=== PATIENT | female | born 1995 | race Caucasian/White ===

== ENCOUNTER 2018-06-14 18:20 | Emergency (ER) | payer OTHER ==
[~2018-06-14] VITALS: Ht 160 cm; Wt 54.0 kg
--- NOTE | 2018-06-14 18:29 | NUR ---
Pt provided verbal consent for SART exam. [facility] pt advocate Candace present. FOX Cooper provided brief background including initially taking pt to [facility] where he was redirected here.
[2018-06-14 18:36] VITALS: BP 122/68
--- NOTE | 2018-06-14 18:50 | NUR ---
Pt transferred from T2 to ED28 with belongings accompanied by Pt advocate Candace following medical assessment by Dr Hernandez and overview of exam process.
[2018-06-14 19:02] LABS: URINE HCG NEGATIVE (NEG)
--- NOTE | 2018-06-14 19:02 | NUR ---
SART exam started following written consent and medical records release signed for [facility].
[2018-06-14 19:04] LABS: CLARITY,URINE SLIGHTLY CLOUDY (Clear); COLOR,URINE YELLOW (Yellow); GLUCOSE, URINE NEGATIVE (Neg); KETONES,URINE NEGATIVE (Neg); LEUKOCYTE ESTERASE ,URINE NEGATIVE (Neg); NITRITES, URINE NEGATIVE (Neg); OCCULT BLOOD,URINE NEGATIVE (Neg); PROTEIN,URINE NEGATIVE (Neg); UROBILINOGEN,URINE 0.2 E.U/dL (0.2-1.0)
[2018-06-14 19:08] LABS: UA COLLECTION TYPE VOIDED
[2018-06-14 19:10] LABS: AMORPHOUS PHOSPHATES 4+
[2018-06-14 19:11] LABS: BACTERIA,URINE FEW /HPF (Neg); RBC,URINE 0-2 /HPF (0-2); SQUAMOUS EPITHELIAL CELL,UR MANY /LPF (FEW); WBC,URINE 0-4 /HPF (0-4)
--- NOTE | 2018-06-14 20:10 | NUR ---
Discussed vaginal exam with Dr Hernandez; orders received for prophylactic STI and medication. Medication education provided pt including s/s warranting a return ED or [facility] visit. Pt verbalized understanding. Medications administered.
== END 2018-06-14 20:37 | disposition home or self-care (01) ==
LOC: EEVIPCON 18:22 → ER 18:22
DX: T74.21XA Adult sexual abuse, confirmed, initial encounter (principal); Z98.890 Other specified postprocedural states; Z60.2 Problems related to living alone; Y92.89 Other specified places as the place of occurrence of the external cause
CPT/HCPCS: 81001; 81025; 99283; 99284